=== PATIENT | male | born 1965 | race Caucasian/White ===

== ENCOUNTER 2021-01-25 09:05 | Inpatient (IN) | payer BC ==
[2021-01-19 12:45] VITALS: BMI 41.5
[2021-01-25] MEDS ORDERED: TRANEXAMIC ACID 1000 MG/10 ML VIAL IVPUSH ONE (09:09)
[2021-01-25] MEDS ORDERED: CEFAZOLIN 3 GM in DEXTROSE 5%-WATER - 100 ML IVPB ONE (09:09)
[2021-01-25] MEDS: CELECOXIB 200 MG CAPSULE PO ONE ×2 (09:35→15:41)
[2021-01-25] MEDS ORDERED: BUPIVACAINE LIPOSOME/PF (EXPAREL) 266 MG/20 ML VIAL ONE (10:15)
[2021-01-25] MEDS ORDERED: SODIUM CHLORIDE 0.9% P/F 10 ML VIAL IJ ONE (10:15)
[2021-01-25] MEDS ORDERED: MIDAZOLAM HCL 2 MG/2 ML SINGLE DOSE VIAL ONE ×2 (10:15→10:37)
[2021-01-25] MEDS ORDERED: VANCOMYCIN 1,000 MG VIAL (RESTRICTED TO ID ONLY) ONE (11:02)
[2021-01-25] MEDS ORDERED: ceFAZolin SODIUM 1 GM VIAL ONE ×3 (11:02→21:14)
[2021-01-25] MEDS ORDERED: TRANEXAMIC ACID 1000 MG/10 ML VIAL ONE ×2 (11:10→13:41)
[2021-01-25] MEDS ORDERED: PROPOFOL 20 ML ONE ×3 (11:11→13:22)
[2021-01-25] MEDS ORDERED: DEXAMETHASONE SOD PHOSPHATE 4 MG/1 ML VIAL ONE (11:12)
[2021-01-25] MEDS ORDERED: ONDANSETRON 4 MG/2 ML VIAL ONE ×2 (11:12→14:24)
[2021-01-25] MEDS ORDERED: ONDANSETRON 4 MG/2 ML VIAL IVPUSH PRN (11:32)
[2021-01-25] MEDS ORDERED: MAGNESIUM HYDROX 2400MG/30ML ORAL SUSPENSION 30 ML CUP PO PRN (11:32)
[2021-01-25] MEDS ORDERED: MAG HYDROX/AL HYDROX/SIMETH 30 ML UNIT-DOSE CUP PO PRN (11:32)
[2021-01-25] MEDS ORDERED: LACTATED RINGERS SOLUTION 1,000 ML IV SCH (11:45)
[2021-01-25] MEDS ORDERED: oxyCODONE HCL 5 MG TABLET PO PRN (12:03)
[2021-01-25] MEDS ORDERED: VANCOMYCIN 1,000 MG VIAL (RESTRICTED TO ID ONLY) IVPB ONE (13:20)
[2021-01-25] MEDS ORDERED: ACETAMINOPHEN 325 MG TABLET (FP) ONE (14:24)
[2021-01-25] MEDS ORDERED: oxyCODONE HCL 5 MG TABLET ONE (14:24)
[2021-01-25] MEDS: oxyCODONE HCL 5 MG TABLET PO PRN ×2 (14:40→17:56)
[2021-01-25] MEDS: ACETAMINOPHEN 325 MG TABLET (FP) PO SCH ×2 (15:41→21:29)
[2021-01-25] MEDS: CEFAZOLIN 3 GM in DEXTROSE 5%-WATER 100 ML IVPB SCH (20:28)
[2021-01-25] MEDS ORDERED: DEXTROSE 5%-WATER 100 ML IVPB ONE (21:14)
[2021-01-25] MEDS: SENNOSIDES/DOCUSATE COMBO (SENNA PLUS) TABLET (UD) PO SCH (21:29)
[2021-01-26] MEDS ORDERED: ceFAZolin SODIUM 1 GM VIAL ONE (01:53)
[2021-01-26] MEDS ORDERED: DEXTROSE 5%-WATER 100 ML IVPB ONE (01:53)
[2021-01-26] MEDS: oxyCODONE HCL 5 MG TABLET PO PRN ×2 (02:00→08:24)
[2021-01-26] MEDS: ACETAMINOPHEN 325 MG TABLET (FP) PO SCH ×4 (02:01→21:54)
[2021-01-26] MEDS: CEFAZOLIN 3 GM in DEXTROSE 5%-WATER 100 ML IVPB SCH (04:12)
[2021-01-26 07:48] LABS: HEMATOCRIT 32.2 % (35.4-49); MCH 28.8 pg (25.7-33.7); MCHC 34.3 g/dl (32.0-35.9); MEAN CELL VOLUME 84.1 fl (80-96); MEAN PLT VOLUME 6.2 fl (7.5-11.1); PLATELET COUNT 250 K/MM3 (134-434); RBC 3.82 M/mm3 (4.00-5.60); RDW 13.3 % (11.9-15.9); WHITE BLOOD COUNT 8.6 K/mm3 (4.0-10.8)
[2021-01-26] MEDS: ASPIRIN 325 MG TABLET PO SCH (08:21)
[2021-01-26] MEDS: MULTIVITAMINS (DAILY MVI) TABLET (FP) PO SCH (10:31)
[2021-01-26] MEDS: SENNOSIDES/DOCUSATE COMBO (SENNA PLUS) TABLET (UD) PO SCH ×2 (10:32→21:54)
[2021-01-26] MEDS: PANTOPRAZOLE 40 MG TABLET PO SCH (10:32)
[2021-01-26] MEDS: KETOROLAC TROMETHAMINE 30 MG/1 ML VIAL IVPUSH SCH ×2 (11:16→17:53)
[2021-01-26] MEDS ORDERED: LOCK ITEM NR ONE (22:14)
[2021-01-27] MEDS: KETOROLAC TROMETHAMINE 30 MG/1 ML VIAL IVPUSH SCH ×3 (00:25→04:59)
[2021-01-27] MEDS: ACETAMINOPHEN 325 MG TABLET (FP) PO SCH ×4 (03:41→14:26)
[2021-01-27 07:50] LABS: HEMATOCRIT 29.1 % (35.4-49); HEMOGLOBIN 9.5 GM/dl (11.7-16.9); MCH 28.2 pg (25.7-33.7); MCHC 32.6 g/dl (32.0-35.9); MEAN CELL VOLUME 86.5 fl (80-96); MEAN PLT VOLUME 6.4 fl (7.5-11.1); PLATELET COUNT 202 K/MM3 (134-434); RBC 3.37 M/mm3 (4.00-5.60); RDW 13.4 % (11.9-15.9); WHITE BLOOD COUNT 8.3 K/mm3 (4.0-10.8)
[2021-01-27] MEDS: ASPIRIN 325 MG TABLET PO SCH (08:27)
[2021-01-27] MEDS: MULTIVITAMINS (DAILY MVI) TABLET (FP) PO SCH (09:26)
[2021-01-27] MEDS: PANTOPRAZOLE 40 MG TABLET PO SCH (09:26)
[2021-01-27] MEDS: SENNOSIDES/DOCUSATE COMBO (SENNA PLUS) TABLET (UD) PO SCH (09:26)
[2021-01-27 15:07] VITALS: BP 102/62; PULSE 103; TEMP 98.2
[2021-01-27] MEDS: oxyCODONE HCL 5 MG TABLET PO PRN (18:43)
== END 2021-01-27 19:56 | disposition home health service (06) | DRG 470 ==
LOC: FM/S 09:05
PROVIDERS: ADMIT Orthopaedic Surgery; ATTEND Orthopaedic Surgery
PROC: 8E0Y0CZ Robotic Assisted Procedure of Lower Extremity, Open Approach (ICD-10-PCS; 2021-01-25)
PROC: 0SRC0JZ Replacement of Right Knee Joint with Synthetic Substitute, Open Approach (ICD-10-PCS; principal; 2021-01-25 12:00)
DX: M17.11 Unilateral primary osteoarthritis, right knee (principal); Z68.41 Body mass index [BMI] 40.0-44.9, adult; G47.30 Sleep apnea, unspecified; E66.01 Morbid (severe) obesity due to excess calories; R00.0 Tachycardia, unspecified
CPT/HCPCS: 36415; 73560-TC-RT-FY; 85027; 94760; 97010-GP; 97116-GP; 97162-GP

== ENCOUNTER 2021-02-22 10:09 | Day surgery (SDC) | payer BC ==
[2021-02-21 16:04] VITALS: BMI 40.7
[2021-02-22] MEDS ORDERED: MIDAZOLAM HCL 2 MG/2 ML SINGLE DOSE VIAL ONE (10:39)
[2021-02-22] MEDS ORDERED: oxyCODONE HCL 5 MG TABLET PO PRN ×2 (10:56)
[2021-02-22] MEDS ORDERED: ONDANSETRON 4 MG/2 ML VIAL IVPUSH PRN (10:56)
[2021-02-22] MEDS ORDERED: PROMETHAZINE HCL 25 MG/1 ML VIAL IVPUSH PRN (10:56)
[2021-02-22 11:53] VITALS: BP 110/72; PULSE 81; TEMP 98.4
== END 2021-02-22 12:10 | disposition home or self-care (01) ==
LOC: FASU 10:09
PROVIDERS: ATTEND Orthopaedic Surgery
PROC: 0SSCXZZ Reposition Right Knee Joint, External Approach (ICD-10-PCS; principal; 2021-02-22 12:30)
DX: M25.661 Stiffness of right knee, not elsewhere classified (principal); Z96.651 Presence of right artificial knee joint
CPT/HCPCS: 94760

== ENCOUNTER 2025-04-10 16:24 | Emergency (ER) | payer BC ==
[2025-04-10 16:40] VITALS: BP 137/87; PULSE 98; RESP 19; TEMP 99.3; BMI 44.1
[2025-04-10] MEDS ORDERED: ACETAMINOPHEN INJECTION 100 ML ONE (17:34)
[2025-04-10] MEDS: ACETAMINOPHEN 1000 MG/100 ML BAG IVPB ONE (17:38)
[2025-04-10] MEDS: LACTATED RINGERS SOLUTION 1000 ML INFUS.BAG IV ONE (17:38)
[2025-04-10 17:52] LABS: ABSOLUTE IMMATURE GRANULOCYTES 0.01 x10^3/uL (0.0-0.031); BASOPHILS # 0.02 x10^3/uL (0.01-0.08); EOSINOPHIL % 4.9 % (0.8-7.0); EOSINOPHILS # 0.19 x10^3/uL (0.04-0.54); HEMATOCRIT 33.9 % (40.1-51.0); HEMOGLOBIN 10.8 g/dL (13.7-17.5); MCHC 31.9 g/dl (32.3-36.5); MEAN CELL VOLUME 82.7 fl (79.0-92.2); MONOCYTE # 0.46 x10^3/uL (0.30-0.82); MONOCYTE % 11.8 % (5.3-12.2); PLATELET COUNT 203 x10^3/uL (163-337); RDW 14.8 % (12.2-16.1)
[2025-04-10 18:04] LABS: ALBUMIN 3.9 g/dl (3.4-5.0); BILIRUBIN,TOTAL 0.5 mg/dl (0.2-1); CALCIUM 8.5 mg/dl (8.5-10.1); CREATININE 0.8 mg/dl (0.6-1.3); MAGNESIUM 1.7 mg/dL (1.8-2.4); TOT PROT 6.7 g/dl (6.4-8.2)
== END 2025-04-10 19:33 | disposition home or self-care (01) ==
LOC: FER 16:24
PROC: 3E033NZ Introduction of Analgesics, Hypnotics, Sedatives into Peripheral Vein, Percutaneous Approach (ICD-10-PCS; principal; 2025-04-10)
DX: R53.81 Other malaise (principal); M79.10 Myalgia, unspecified site; B34.9 Viral infection, unspecified; R19.7 Diarrhea, unspecified; R05.9 Cough, unspecified; R50.9 Fever, unspecified; R11.0 Nausea; R07.89 Other chest pain; R53.83 Other fatigue; K08.89 Other specified disorders of teeth and supporting structures; R63.8 Other symptoms and signs concerning food and fluid intake; R10.9 Unspecified abdominal pain
CPT/HCPCS: 36415; 71046-TC-FY; 80053; 83735; 85025; 99284-25; J0131